=== PATIENT | female | born 1950 | race Caucasian/White ===

== ENCOUNTER → 2017-10-08 13:11 | Outpatient (CLI) | payer MEDICARE, SELFPAY ==
--- NOTE | 2017-10-08 | DI.MRI.S_ITS ---
PROCEDURE: MR SHOULDER LT WO CON INDICATIONS: CHRONIC LEFT SHOULDER PAIN TECHNIQUE: Noncontrast oblique coronal T2 fast spin echo with fat saturation, oblique sagittal T1 spin echo and T2 fast spin echo with fat saturation, axial T1 spin echo and T2 fast spin echo with fat saturation through the shoulder. COMPARISON: [facility], , CHEST 1 VIEW, 09/08/2016, 0:15. FINDINGS: Image quality: Diagnostic Rotator cuff: There is an irregular moderate to high grade partial-thickness tear along the bursal surface of the junction of the supraspinatus and infraspinatus tendons (image 16, series 7 image 13, series 5). Corresponding tendinopathy is present. The subscapularis and teres minor tendons are intact and otherwise unremarkable. No significant atrophy is evident involving the rotator cuff muscles. Bones and bursae: There is no acute fracture, dislocation, or suspicious osseous lesion involving the osseous structures of the left shoulder. There are mild degenerative changes of the glenohumeral joint with an associated small joint effusion. Mild degenerative changes are also noted involving the acromioclavicular joint. Mild edema is noted at the tip of the lateral acromion. A small amount of fluid is contained within the subacromial subdeltoid bursa. Capsule and soft tissues: Evaluation of the labrum and the glenohumeral ligaments is difficult without intra-articular contrast. No acute ligamentous injury is suspected. Heterogeneity at the labral cartilaginous junction along the posterosuperior aspect of the labrum is suspicious for a small labral tear. A detached labral fragment or large para labral cysts are evident. The long head of the biceps tendon is normally positioned within the bicipital groove. There is a focal area of edema identified at the superficial margin of the lateral aspect of the mid deltoid muscle, which demonstrates increased signal on the fluid sensitive sequences and intermediate signal on the T1 images. This structure measures at least 8 mm x 9 mm x 23 mm (image 19, series 3 and image 18, series 3). IMPRESSION: 1. Small irregular moderate to high-grade partial-thickness tear involving the junction of the supraspinatus and infraspinatus tendons with corresponding tendinopathy. 2. Probable small posterosuperior labral tear. The need for better characterization utilizing MR arthrography may be determined clinically. 3. Mild degenerative changes of the glenohumeral and acromioclavicular joints. 4. Abnormal signal along the superficial margin of the lateral mid deltoid muscle may represent focal edema from recent soft tissue injury. However, the possibility of a soft tissue mass is difficult to exclude. Please consider MRI of the shoulder with intravenous contrast for further evaluation. Dictated by: Tree Hutchison M.D. on 10/08/2017 at 13:33 Approved by: Tree Hutchison M.D. on 10/08/2017 at 13:51
== END ==
PROVIDERS: PCP Family Medicine; Visit Provider Orthopaedic Surgery
DX: M19.012 Primary osteoarthritis, left shoulder (principal); M75.102 Unspecified rotator cuff tear or rupture of left shoulder, not specified as traumatic; M25.512 Pain in left shoulder
CPT/HCPCS: 73221

== ENCOUNTER → 2022-10-08 12:40 | Outpatient (CLI) | payer MEDICARE, SELFPAY ==
--- NOTE | 2022-10-08 12:52 | DI.MRI.S_ITS ---
PROCEDURE: MR SHOULDER LT WO CON INDICATIONS: INPINGEMENT SYNDROME TECHNIQUE: Noncontrast oblique coronal T2 fast spin echo with fat saturation, oblique sagittal T1 spin echo and T2 fast spin echo with fat saturation, axial T1 spin echo and T2 fast spin echo with fat saturation through the shoulder. COMPARISON: [facility] [place], CR, XR SHOULDER 2+ VIEWS LEFT, 08/31/2022, 17:05. [facility], MR, MR SHOULDER LT WO CON, 10/08/2017, 13:29. FINDINGS: Image quality: Excellent. Rotator cuff: There is high-grade partial articular sided tearing of the posterior supraspinatus tendon/anterior infraspinatus tendon at their distal insertions that does not appear significantly progressed when compared to the MRI from 10/08/2017. No definite full-thickness component is seen. Findings are superimposed on chronic tendinopathy. The teres minor and subscapularis tendons are intact. No significant rotator cuff muscle atrophy. Bones and bursae: No acute trabecular bone injury or fracture. Chronic traction cystic changes are seen at the posterosuperior humeral head. Mild partial-thickness cartilage irregularity in the glenohumeral joint. Mild degenerative changes are seen at the acromioclavicular joint with subchondral cystic changes. There is a lobular cyst anterior to the acromioclavicular joint measuring 12 x 12 x 5 mm that may represent loculated subacromial/subdeltoid bursal fluid or a ganglion cyst. No significant glenohumeral effusion. Capsule and soft tissues: There is nondisplaced tearing of the posterior labrum with uptake of quinault joint fluid. No paralabral cyst. Proximal biceps long head tendon is intact. There is partial effacement of the fat in the rotator interval. The middle and inferior glenohumeral ligaments are mildly thickened. Lobular [id number] lesion is seen along the superficial margin of the deltoid muscle that does not appear significantly changed when compared to the prior MRI. IMPRESSION: 1. 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 2. Small nondisplaced posterior labral tear. 3. 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 4. Mild acromioclavicular osteoarthrosis. 5. Lobular 12 mm cystic lesion along the anterior aspect of the acromioclavicular joint may represent a ganglion cyst or loculated subacromial/subdeltoid bursal fluid. 6. Stable lobular [id number] lesion in the subcutaneous tissues superficial to the deltoid muscle. Given stability over time, this lesion is favored to represent a benign process such as a lymphovascular malformation. Approved by: Edmund Duarte M.D. on 10/08/2022 at 15:25
== END ==
PROVIDERS: PCP Physician Assistant; Referring Provider Orthopaedic Surgery; Visit Provider Orthopaedic Surgery
DX: M75.42 Impingement syndrome of left shoulder (principal); M75.112 Incomplete rotator cuff tear or rupture of left shoulder, not specified as traumatic; M19.012 Primary osteoarthritis, left shoulder; S43.492A Other sprain of left shoulder joint, initial encounter; M94.212 Chondromalacia, left shoulder; M25.812 Other specified joint disorders, left shoulder
CPT/HCPCS: 73221